=== PATIENT | female | born 2005 | race American Indian/Alaskan Native ===

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

== ENCOUNTER 2024-02-13 16:31 | Emergency (ER) | payer MEDICAID, OTHER ==
[2024-02-13 16:55] VITALS: BP 147/94; PULSE 87
== END 2024-02-13 17:20 | disposition home or self-care (01) ==
LOC: DL.ED 16:31
DX: K04.7 Periapical abscess without sinus (principal)
CPT/HCPCS: 99282